=== PATIENT | female | born 2000 | race Caucasian/White ===

== ENCOUNTER 2021-07-18 13:55 | Outpatient (REF) | payer BC, SELFPAY ==
[2021-07-18 16:29] LABS: MANUAL DIFF FLAG NO
[2021-07-18 16:35] LABS: Basophils Percent Auto 0.3 % (0-2); Eosinophils Absolute Auto 0.1 X10*3/uL (0.0-0.4); Eosinophils Percent Auto 1.4 % (0-4); Hematocrit 39.6 % (37.0-47.0); Hemoglobin 12.9 g/dl (12.0-16.0); Imm Gran Abs Auto 0.02 X10*3/uL (0.00-0.03); Imm Gran Pct Auto 0.3 % (0.0-0.4); Lymphocytes Absolute Auto 2.2 X10*3/uL (1.2-4.9); Lymphocytes Percent Auto 33.4 % (20-40); Mean Corpuscular HGB Conc 32.6 g/dl (31.0-35.0); Mean Corpuscular Hemoglobin 29.2 pg (27.0-33.0); Mean Corpuscular Volume 89.6 fL (80.0-98.0); Mean Platelet Volume 10.7 fL (9.4-12.3); Monocytes Absolute Auto 0.4 X10*3/uL (0.1-1.2); Monocytes Percent Auto 5.9 % (2-11); Neutrophils Absolute Auto 3.9 x10*3/uL (2.0-8.3); Neutrophils Percent Auto 58.7 % (45-73); Platelet Count 246 X10*3/uL (160-400); Red Blood Count 4.42 X10*6/uL (4.20-5.50); Red Cell Distribution Width 13.1 % (11.0-16.0); White Blood Count 6.7 X10*3/uL (4.8-10.8)
[2021-07-18 17:03] LABS: Alanine Aminotransferase 10 U/L (0-31); Alkaline Phosphatase 54 U/L (39-117); Anion Gap 16 (12-20); Aspartate Amino Transferase 18 U/L (5-31); Bilirubin Total 0.7 mg/dL (0.0-1.0); Blood Urea Nitrogen 9 mg/dL (9-16); Calcium 9.9 mg/dL (8.4-10.2); Carbon Dioxide 24 mmol/L (22-29); Chloride 103 mmol/L (96-108); Cholesterol 214 mg/dL; Estimated Glomerular Filt Rate > 60; Glucose Fasting 83 mg/dL (60-99); HDL Cholesterol 87 mg/dL; LDL Cholesterol Calculated 114 mg/dl; Sodium 139 mmol/L (135-145); Total Protein 7.9 g/dL (6.5-8.0); Triglycerides 69 mg/dL
[2021-07-18 17:14] LABS: Syphilis Screen Nonreactive (Nonreactive)
[2021-07-18 17:21] LABS: TSH reflex Free T4 1.35 uIU/mL (0.32-4.0)
[2021-07-21 08:17] LABS: HBS Num1 0.82 mIU/mL (0-7.99); HIV AB/AG Nonreactive (Nonreactive); HIV Num 1 0.04 S/CO (0.00-0.99); ~HepC Num1 0.13 S/CO (0.00-0.79); ~Hepatitis B Surface Antibody NONREACTIVE (Nonreactive); ~Hepatitis C Antibody Nonreactive (Nonreactive)
[2021-07-21 08:33] LABS: HBc Num1 0.08 S/CO (0.00-0.79); HBsAGNum1 0.24 S/CO (0.00-0.99); Hepatitis B Core Antibody Nonreactive (Nonreactive); Hepatitis B Surface Antigen Negative (Negative)
== END 2021-07-18 13:56 | disposition home or self-care (01) ==
LOC: HO.HMGCLDS 13:55
PROVIDERS: PCP Family Medicine; Visit Provider Family Medicine
DX: Z00.00 Encounter for general adult medical examination without abnormal findings (principal); Z11.3 Encounter for screening for infections with a predominantly sexual mode of transmission; Z13.220 Encounter for screening for lipoid disorders; Z11.4 Encounter for screening for human immunodeficiency virus [HIV]; Z13.29 Encounter for screening for other suspected endocrine disorder; Z11.59 Encounter for screening for other viral diseases
CPT/HCPCS: 36415; 80053; 80061; 84443; 85025; 86704; 86706; 86780; 86803; 87340; 87389

== ENCOUNTER → 2022-08-18 15:51 | Outpatient (REF) | payer OTHER, SELFPAY ==
--- NOTE | 2022-08-18 15:56 | CA_ITS ---
Transthoracic Echocardiogram Patient (Last, First, Middle): Suki Duncan M Gender: Female Date of : 2000 Age: 22 Procedure Date: 08/18/2022 Procedure Type: Transthoracic Echocardiogram Location: OP Height: 165.1 cm Weight: 54.43 kg BSA: 1.59 m2 Heart Rate: bpm BP: 152 / 84 mmHg Buggyman: EMILY Referring MD: Sami Linares MD Symptoms: R01.1 - Cardiac murmur, unspecified Study Quality: Fair ECG Rhythm: Sinus Conclusions: - The left ventricular systolic function is normal. The calculated ejection fraction is 56% by biplane method. - No obvious valvular pathology seen on this study. Findings Left Ventricle Normal left ventricular cavity size. There is normal left ventricular wall thickness. The left ventricular systolic function is normal. The calculated ejection fraction is 56% by biplane method. There is no evidence of regional wall motion abnormalities. Diastolic function is normal for age. Right Ventricle Normal right ventricular cavity size and systolic function. Atria Both atria are normal in size. Aortic Valve There is a normal trileaflet aortic valve. There is no aortic valve stenosis. There is no aortic valve regurgitation. Mitral Valve The mitral valve appears normal. There is trace mitral valve regurgitation. There is no mitral valve stenosis. Pulmonic Valve The pulmonic valve is likely normal. Tricuspid Valve There is trace tricuspid valve regurgitation. There is no evidence of pulmonary hypertension. Great Vessels The aortic annulus, sinuses of valsalva, and asc aorta are normal in size. Venous The inferior vena cava is normal in size and collapses greater than 50% with inspiration. Pericardium/Pleural There is no evidence of pericardial effusion. Prior Study Comparison No prior study available for comparison. Recommendations, Care & Conclusions No obvious valvular pathology seen on this study. Measurements 2D Linear Measurements IVSd: 0.70 0.6-0.9/0.6-1.0 cm LVIDd: 4.71 3.9-5.3/4.2-5.9 cm LVIDd Index: 2.96 2.4-3.2/2.2-3.1 cm/m2 LVIDs: 3.00 2.0-3.6 cm LVPWd: 0.79 0.7-1.1 cm LA Diam: 2.40 2.7-3.8/3.0-4.0 cm LAIDs Index: 1.51 1.5-2.3 cm/m2 LV Mass: 138.60 67-162/88-224 g LV Mass Index: 87.17 43-95/49-115 g/m2 LVOT Diam: 1.90 3.0+(-)1.3 cm 2D Systolic Function EF 4C: 58.20 >55% EF 2C: 57.30 >55% EF BiP: 56.10 >55% Mitral Valve MV Pk E: 0.74 MV PK A: 0.70 MV Decel Time: 265.00 E/A: 1.10 E'Lateral: 14.00 E'Medial: 8.81 E/E' Med: 8.40 E/E' Lat: 5.30 PHT: 77.00 MVA PHT: 2.86 Decel Chambers: 2.80 Aortic Valve AoV Pk Davi: 1.49 AoV Mn Davi: 1.03 AoV VTI: 0.27 AoV Pk Grad: 9.00 Aov Mn Grad: 5.00 VERÓNICA Cont.VTI: 1.95 LVOT LVOT Pk Davi: 0.91 LVOT Mn Davi: 0.64 LVOT VTI: 0.19 LVOT Pk Grad: 3.00 LVOT Mn Grad: 2.00 LVOT Diam: 1.90 LVOT Area: 2.84 Diastolic Function MV Pk E: 0.74 MV Pk A: 0.70 E/A: 1.10 E'Medial: 8.81 E/E' Med: 8.40 E' Laterial: 14.00 E/E' Lat: 5.30 Right Ventricle TAPSE (mm): 19.90 TVS' Davi: 13.00 Tricuspid Valve TR Pk Davi: 2.29 TR Pk Grad: 21.00 RA Press: 3.00 RVSP: 24.00 Great Vessels Aorta Sinus of Valsalva: 2.38 2.0-3.[address] Ridge: 1.77 1.7-3.4 cm Ao Asc: 2.60 2.1-3.4 cm Pulmonary Valve PV Pk Davi: 1.38 PV Min Davi: 0.98 Peak PV Grad: 8.00 PV Mn Grad: 4.00 Shunting QP:QS: 1.70 Updated in Other Vendor System with Status of Final Toni Vazquez MD electronically signed on 08/19/2022 12:24:41 PM with status of Final
== END ==
LOC: HO.CARD 15:51
PROVIDERS: PCP Family Medicine; Visit Provider Family Medicine
DX: R01.1 Cardiac murmur, unspecified (principal)
CPT/HCPCS: 93306